=== PATIENT | female | born 1975 | race Caucasian/White ===

== ENCOUNTER 2017-07-26 10:33 | Emergency (ER) | payer OTHER ==
[~2017-07-26] VITALS: Ht 167.6 cm; Wt 74.6 kg
[2017-07-26 10:37] VITALS: Ht 167.6 cm; Wt 74.6 kg
[2017-07-26] MEDS ORDERED: NAPR-260 PO (12:43)
[2017-07-26] MEDS ORDERED: HYDR-906 PO (12:43)
[2017-07-26] MEDS ORDERED: AMOX500C2 PO (12:43)
--- NOTE | 2017-07-26 18:47 | ERD ---
ER Documentation Chief Complaint Chief Complaint Complains of right jaw pain x 3 days HPI This patient is a 42-year-old otherwise healthy female presenting to the emergency department with complaints of right lower jaw pain and swelling for the past 2 days. The patient does have medical history of dental caries. The patient was not able to follow-up with a [place] Pain is intermittent. Associated with headache. She denies fevers, chills, or other symptoms at this time. ROS All systems reviewed and are negative except as per history of present illness. Medications Home Meds Active Scripts Naproxen* (Naprosyn*) 500 Mg Tablet, 500 MG PO BID Y for PAIN AND/OR INFLAMMATION, #20 TAB Prov:REINALDO JAMA PA-C 07/26/17 Hydrocodone/Acetaminophen ([place] 5-325 Tablet) 1 Each Tablet, 1 TAB PO Q6H Y for PAIN, #7 TAB Prov:REINALDO JAMA PA-C 07/26/17 Amoxicillin* (Amoxicillin*) 500 Mg Cap, 500 MG PO TID for 10 Days, #30 CAP Prov:REINALDO JAMA PA-C 07/26/17 Allergies Allergies: Coded Allergies: No Known Allergy (Unverified , 07/26/17) PMhx/Soc Medical and Surgical Hx: pt denies Medical Hx, pt denies Surgical Hx History of Surgery: No Anesthesia Reaction: No Hx Neurological Disorder: No Hx Respiratory Disorders: No Hx Cardiac Disorders: No Hx Psychiatric Problems: No Hx Miscellaneous Medical Probl: No Hx Alcohol Use: No Hx Substance Use: No Hx Tobacco Use: No Smoking Status: Never smoker Physical Exam Vitals Vital Signs Date Time Temp Pulse Resp B/P Pulse Ox O2 Delivery O2 Flow Rate FiO2 07/26/17 10:37 98.8 86 20 119/77 98 Physical Exam Const: Nontoxic, well-appearing female in no acute distress. Head: Atraumatic. There is some tenderness palpation of the right lower jaw with some associated edema of the right lower mandibular area. No erythema or warmth noted. Eyes: Normal Conjunctiva ENT: Normal External Ears, Nose and Mouth. Poor dentition. Multiple missing teeth to the right lower gums. Neck: Full range of motion..~ No meningismus. Ext: No cyanosis, or edema Neur: Awake and alert Psych: Normal Mood and Affect Procedures/MDM This is a very pleasant 42-year-old female presented to the emergency department with complaints of right lower jaw pain. History and physical examination is consistent with a possible early dental abscess. No evidence of sepsis or other life-threatening illness in the emergency department. The patient's vital signs are stable and she was appropriate for outpatient management with a prescription for amoxicillin and naproxen and [place]. No evidence of life-threatening pathology at time of discharge. Pt/family in agreement with discharge plan/diagnosis. Pt/family advised to return immediately with any new or worsening symptoms. Follow-up with primary care physician within the next 1-2 days. Departure Diagnosis: Primary Impression: Pain, dental Condition: Fair Patient Instructions: Dental Pain Referrals: [facility] YOU HAVE RECEIVED A MEDICAL SCREENING EXAM AND THE RESULTS INDICATE THAT YOU DO NOT HAVE A CONDITION THAT REQUIRES URGENT TREATMENT IN THE EMERGENCY DEPARTMENT. FURTHER EVALUATION AND TREATMENT OF YOUR CONDITION CAN WAIT UNTIL YOU ARE SEEN IN YOUR DOCTORS OFFICE WITHIN THE NEXT 1-2 DAYS. IT IS YOUR RESPONSIBILITY TO MAKE AN APPOINTMENT FOR FOLOW-UP CARE. IF YOU HAVE A PRIMARY DOCTOR --you should call your primary doctor and schedule an appointment IF YOU DO NOT HAVE A PRIMARY DOCTOR YOU CAN CALL OUR PHYSICIAN REFERRAL HOTLINE AT IF YOU CAN NOT AFFORD TO SEE A PHYSICIAN YOU CAN CHOSE FROM THE FOLLOWING [facility] [address] [facility]. [facility] [address] [facility]. [facility] [address] [facility]. [facility] [address] [facility]. [facility] [address] [facility]. [facility]. [address] [facility] ([facility] walk in clinic) Additional Instructions: Call your primary care doctor TOMORROW for an appointment during the next 1-2 days.See the doctor sooner or return here if your condition worsens before your appointment time. REINALDO JAMA PA-C Jul 26, 2017 18:47
== END 2017-07-26 13:24 | disposition home or self-care (01) ==
LOC: FTE 10:33
DX: K08.89 Other specified disorders of teeth and supporting structures (principal)
CPT/HCPCS: 99284

== ENCOUNTER 2018-02-08 17:15 | Emergency (ER) | END 2018-02-08 19:41 | disposition home or self-care (01) ==

== ENCOUNTER 2018-02-17 20:56 | Inpatient (IN) | END 2018-02-20 18:45 | disposition home or self-care (01) | DRG 842 ==

== ENCOUNTER 2018-08-19 13:20 | Emergency (ER) | payer OTHER ==
[~2018-08-19] VITALS: Ht 170.2 cm; Wt 77.6 kg
[~2018-08-19 13:20] MED LIST: CARI350T29 PO; IBUP-1542 PO
[2018-08-19 13:28] VITALS: BP 115/85; PULSE 87; RESP 18; Ht 170.2 cm; Wt 77.6 kg
[2018-08-19] MEDS ORDERED: D-ME473S2 PO (14:28)
[2018-08-19] MEDS ORDERED: OSEL75CA23 PO (14:28)
[2018-08-19] MEDS ORDERED: IBUP-1542 PO (14:28)
--- NOTE | 2018-08-19 14:31 | ERD ---
ER Documentation Chief Complaint Chief Complaint fever with cough & overall feeling crappy x 2 days HPI 43-year-old female presents ED with complaints of flulike symptoms for the past 2 days. Admits to subjective fevers but has not taken temperature, chills, body aches, tiredness, cough congestion runny nose. Denies sputum production, shortness of breath, trouble breathing, nausea, vomiting, diarrhea, constipation, abdominal pain all other symptoms. No known drug allergies. ROS All systems reviewed and are negative except as per history of present illness. Medications Home Meds Active Scripts Ibuprofen* (Motrin*) 600 Mg Tab, 600 MG PO Q6, #30 TAB Prov:JOSEPH RÍOS PA-C 08/19/18 Dextromethorphan Hb-Promethazine Hcl* (Promethazine DM* Syrup) 473 Ml Syrup, 5 ML PO Q6 PRN for COUGH for 5 Days, ML Prov:JOSEPH RÍOS PA-C 08/19/18 Oseltamivir Phosphate* (Tamiflu*) 75 Mg Capsule, 75 MG PO BID for 5 Days, CAP Prov:JOSEPH RÍOS PA-C 08/19/18 Carisoprodol* (Carisoprodol*) 350 Mg Tablet, 350 MG PO BID for 14 Days, TAB Prov:ELLE SHEPPARD MD 02/20/18 Ibuprofen* (Ibuprofen*) 600 Mg Tablet, 600 MG PO Q8 PRN for PAIN AND/OR INFLAMMATION, #30 TAB Prov:CATHI VARGAS MD 02/08/18 Allergies Allergies: Coded Allergies: No Known Allergy (Unverified , 02/08/18) PMhx/Soc History of Surgery: No Anesthesia Reaction: No Hx Neurological Disorder: No Hx Respiratory Disorders: No Hx Cardiac Disorders: No Hx Psychiatric Problems: No Hx Miscellaneous Medical Probl: Yes (NONE .) Hx Alcohol Use: No Hx Substance Use: No Hx Tobacco Use: No Smoking Status: Never smoker FmHx Family History: No diabetes Physical Exam Vitals Vital Signs Date Temp Pulse Resp B/P (MAP) Pulse Ox O2 O2 Flow FiO2 Time Delivery Rate 08/19/18 98.2 87 18 115/85 98 13:28 (95) Physical Exam Physical Exam Vitals signs: Reviewed by me. General: Well developed, well nourished, in no acute distress. Patient is awake and alert. Head: Normocephalic, atraumatic. Eyes: Normal conjunctiva, Pupils PERRLA, EOM intact grossly ENT: Pharynx is clear, Moist mucous membranes, external ears, nose and mouth normal, no tonsillar adenopathy, exudate or erythema, no kissing tonsils, no uvula deviation, pink nasal mucosa with clear rhinorrhea, tympanic membrane visualized bilaterally no bulging, erythema, purulent air-fluid line seen Neck: Supple, no masses, lymphadenopathy or JVD Respiratory: Clear to auscultation bilaterally with no wheezing, rhonchi, rales, no distress Cardiovascular: RRR, no murmurs, rubs, or gallops MSK: No edema, no unilateral swelling, 5/5 strength Back: No midline tenderness. No flank tenderness Neurologic: Alert and oriented, moving all extremities, normal speech, no focal weakness, no cerebellar signs. Normal mentation Skin: warm and dry, No rash Psych: Normal mood Procedures/MDM ER COURSE: The patient was stable throughout ED course. I kept the patient and/or family informed of laboratory and diagnostic imaging results throughout the emergency room course. The patient was promptly evaluated and a treatment plan was devised based on H&P and other data. This plan was discussed with the patient who agreed and had no further questions or concerns prior to discharge. MEDICAL DECISION MAKING: This is a 43-year-old female who presents ED with flulike symptoms for the past 2 days. This is likely influenza. Patient is requesting Tamiflu. . No evidence of pneumonia. The patient is well-appearing without respiratory distress. Normal oxygen saturation. X-ray imaging not indicated. The patient does not exhibit any clinical signs or symptoms concerning for serious bacterial infection or systemic illness. Based on history and clinical exam findings the patient does not appear to have evidence of pneumonia, strep pharyngitis, urinary tract infection, bacteremia, sepsis, or meningitis. For these reasons I do not believe it is necessary to obtain laboratory testing or diagnostic imaging. I believe it would be appropriate for symptom control, and close outpatient primary care follow-up. We discussed follow up with the patient's primary care doctor within 24 to 48 hours as needed. We also discussed return to the emergency room for worsening symptoms or worsening condition. DISPOSITION PLAN: We discussed follow up with the patient's primary care doctor within 24 to 48 hours. Patient counseled regarding my diagnostic impression and care plan. Prior to discharge all questions answered. Pt agrees with treatment plan and understands strict return precautions. Precautionary instructions provided including instructions to return to the ER if not improving or for any worsening or changing symptoms or concerns. ExitCare instructions provided. Prior to discharge, patients vital signs have been reviewed SPECIALIST FOLLOW UP RECOMMENDED: None Patient has been advised to follow up with primary care in 1-2 days. Disclaimer: Inadvertent spelling and grammatical errors are likely due to EHR/dictation software use and do not reflect on the overall quality of patient care. Also, please note that the electronic time recorded on this note does not necessarily reflect the actual time of the patient encounter. Departure Diagnosis: Primary Impression: Influenza Condition: Stable Patient Instructions: Influenza (Adult) Additional Instructions: Patient advised to return to the ED immediately for new or worsening symptoms. Patient advised to follow up with primary care provider in the next 24-48 hours. Patient verbalized understanding and agrees with treatment plan and course of action. If patient has no primary care they may follow up with one of the community clinics listed on the following page or one of the options listed below [facility] [address] [place] [id number] or [facility] [address] [place] [address] or [facility] [address] [place] [address] JOSEPH RÍOS PA-C Aug 19, 2018 14:31
== END 2018-08-19 18:43 | disposition home or self-care (01) ==
LOC: FTE 13:20
DX: J11.1 Influenza due to unidentified influenza virus with other respiratory manifestations (principal)
CPT/HCPCS: 99283